=== PATIENT | female | born 2000 | race Caucasian/White ===

== ENCOUNTER 2024-08-03 10:41 | Day surgery (SDC) | payer OTHER ==
--- NOTE | 2024-08-02 18:38 | HP ---
HISTORY AND PHYSICAL HISTORY OF PRESENT ILLNESS: A 24-year-old female who is having right upper quadrant pain, associated nausea and vomiting since her last year. Ultrasound no stones. Had an ejection fraction of 5%. PAST MEDICAL HISTORY: History of bipolar. PAST SURGICAL HISTORY: She had tonsillectomy and adenoidectomy in the past. FAMILY HISTORY: Diabetes. SOCIAL HISTORY: She is a smoker, vapes. Denies alcohol abuse. MEDICATIONS: Sertraline. ALLERGIES: No known drug allergies. REVIEW OF SYSTEMS: Twelve systems reviewed. Pertinent for being overweight and bipolar. Otherwise, no chest pain or palpitations. Other systems negative or noncontributory as above and per preadmission exam. PHYSICAL EXAMINATION: VITAL SIGNS: Height 5 feet 5 inches. BMI 45.76. GENERAL: No acute distress. HEENT: Sclerae nonicteric. Extraocular movements intact. NECK: No JVD. CHEST: Equal excursion, nonlabored breathing. CARDIOVASCULAR: Regular rate and rhythm. ABDOMEN: Soft. Some right upper quadrant tenderness. EXTREMITIES: No cyanosis or edema. NEUROLOGIC: Alert and oriented, moving all extremities symmetrically. PSYCHIATRIC: Appropriate mood and affect. SKIN: Dry. IMPRESSION: Acute exacerbation of chronic cholecystitis, symptomatic biliary dyskinesia. I felt patient needed cholecystectomy. Shown gallbladder pamphlet. Risks were explained in detail including but not limited to risk of bleeding and infection; risk of trocar injury or hernia; risk of bile leak, bile duct injury or retained stone or sludge possibly requiring further procedure either open or ERCP; risk of general anesthesia, DVT, PE, pneumonia; risk of aches and pains, bloating, constipation, and/or loose stools possibly chronic in nature; possibility of no improvement of preop symptoms possibly requiring further workup or studies or endoscopy, or other studies or referrals. We will proceed with laparoscopic cholecystectomy and possible open as an outpatient. Otherwise, continue medications for her bipolar. We will proceed with laparoscopic cholecystectomy with possible open as an outpatient.
[~2024-08-03 10:41] MED LIST: Sensorcaine 0.25% 10 ML ONE
[2024-08-03 11:41] LABS: HCG URINE TEST NEGATIVE (NEGATIVE)
[2024-08-03] MEDS: TYLENOL EXTRA STRENGTH 500 MG PO ONE (11:58)
[2024-08-03] MEDS: celeBREX 100 MG PO ONE (11:58)
[2024-08-03] MEDS: Decadron 4 MG PO ONE (11:58)
[2024-08-03] MEDS: NEURONTIN PO ONE (11:59)
[2024-08-03] MEDS ORDERED: Lactated Ringers 1,000 ML IV ONE ×2 (12:19→15:10)
[2024-08-03] MEDS: Lactated Ringers 1,000 ML IV SCH (12:22)
[2024-08-03] MEDS: MEFOXIN 2 GM PREMIX** 2 GM/50 ML ML IV SCH (12:22)
[2024-08-03] MEDS ORDERED: DIPRIVAN 200 MG/20 ML IV ONE (14:10)
[2024-08-03] MEDS ORDERED: Decadron 4 MG INJ ONE (14:10)
[2024-08-03] MEDS ORDERED: TORAdol 30 mg Injection ONE (14:10)
[2024-08-03] MEDS ORDERED: Versed 2 MG/2 ML Injection ONE (14:10)
[2024-08-03] MEDS ORDERED: Zofran 4 MG/2 ML VIAL ONE ×2 (14:10→15:55)
[2024-08-03] MEDS ORDERED: DEXMEDETOMIDINE 80 MCG/20ML-NS IV ONE (14:10)
[2024-08-03] MEDS ORDERED: BRIDION 200MG/2ML IV ONE ×2 (14:10→15:09)
[2024-08-03] MEDS ORDERED: Xylocaine-Mpf 2% 5 Ml Vial ONE (14:10)
[2024-08-03] MEDS ORDERED: ROCURONIUM BROMIDE IV ONE (14:11)
[2024-08-03] MEDS ORDERED: SUBLIMAZE 100 MCG/2 ML ONE ×2 (14:11→15:37)
[2024-08-03] MEDS ORDERED: Pre-Attached Lta Kit TP ONE (14:14)
[2024-08-03] MEDS ORDERED: Hydromorphone 1 mg/ml Injection ONE (16:04)
[2024-08-03] MEDS: Sodium Chloride 3 ML UD NEBULES IH ONE (16:07)
[2024-08-03] MEDS: Xopenex 1.25 MG/0.5 ML UD NEBULE IH ONE (16:07)
[2024-08-03 17:11] VITALS: RESP 18; TEMP 97.2
[2024-08-03 17:15] VITALS: BP 136/92; PULSE 83; O2SAT 93
--- NOTE | 2024-08-04 10:01 | OP ---
SURGERY DATE/TIME: 08/03/2024 [id number] PREOPERATIVE DIAGNOSES: Acute exacerbation of chronic cholecystitis, symptomatic biliary dyskinesia. POSTOPERATIVE DIAGNOSES: Acute exacerbation of chronic cholecystitis, symptomatic biliary dyskinesia. PROCEDURE: Laparoscopic cholecystectomy. SURGEON: Ernesto Cadet MD. ANESTHESIA: General. ESTIMATED BLOOD LOSS: Minimal. INDICATIONS: As noted above. Risks and benefits were explained in detail. Consent was obtained. DESCRIPTION OF PROCEDURE AND FINDINGS: The patient was taken to the operating room. General anesthesia was induced. Abdomen was prepped and draped in usual sterile fashion. After official time-out, no disagreement in planned procedure. Transverse incision made at supraumbilical area. She has . Fascia grasped and pulled upward. Veress needle inserted. Tested with saline. Pneumoperitoneum accomplished opening a pressure of 0 to 15. A 5 mm bladeless port and camera inserted without difficulty followed by two 5 mm right upper quadrant ports and 1 epigastric port. The gallbladder was grasped. It should be noted the gallbladder was all decompressed and had chronic inflammation on it. It was contracted. The area was retracted up over the edge of the liver in line with Calot triangle, dissection carried posterolateral to anterior fashion. Anterior artery and node were carefully isolated, clipped x3 and divided. This opened up the angle of the cystic duct junction slowly and carefully well skeletonized until the critical view was obtained anteriorly and posteriorly. Once this was accomplished, the cystic duct was clipped x3 and divided in the usual fashion. Gallbladder was slowly and carefully dissected free from its attachments to the liver bed, staying directly along the gallbladder wall, clipping additional oozing side branch off the cystic artery/cystic vein as necessary on the gallbladder wall. Just prior to releasing it from its final attachments to the liver bed, the liver bed reinspected. Clips noted to be in place in the cystic duct/cystic artery stumps. No signs of any active bleeding or bile leakage. It was felt there was no need for any drain placement. Gallbladder was released from its final attachment and placed in provided sac and pulled up and out the supraumbilical port site and passed off. This fascial defect closed with puncture closure device and #1 Vicryl. clips noted to be in place on cystic duct/cystic artery stumps. No signs of any active bleeding or bile leakage. It was felt there was no benefit from drain placement. Pneumoperitoneum decompressed. Wounds irrigated out. Skin incision closed with 4-0 Vicryl. Steri-Strips and sterile dressing applied. Patient tolerated the procedure well. There were no immediate complications. Findings discussed with family out in the waiting area.
== END 2024-08-03 17:30 | disposition home or self-care (01) ==
LOC: SDC 10:41
PROVIDERS: ATTEND Surgery
DX: K81.1 Chronic cholecystitis (principal); K82.8 Other specified diseases of gallbladder
CPT/HCPCS: 81025; 94640; J0694; J1100; J1170; J1885; J2250; J2405; J2704; J3010; L0625; A9270-GY